=== PATIENT | male | born 2000 | race Caucasian/White ===

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

== ENCOUNTER 2019-02-24 16:05 | Emergency (ER) | payer BC ==
--- OUTSIDE RECORDS SUMMARY | 2019-02-24 16:19 | XMS REPORT | Continuity of Care Document ---
:2000 External Reference #:[id number] Author Name SeveroChay, Address [address] [place] [id number] Problems Active Problems Provider Date No current problems or disability Onset: 02/05/2011 Social History Type Date Description Comments Sex Unknown Tobacco Use Start: Unknown Never Smoked Cigarettes ETOH Use Denies alcohol use Recreational Drug Use Denies Drug Use Tobacco Use Start: Unknown Patient has never smoked Smoking Status Reviewed: 08/09/18 Patient has never smoked Allergies, Adverse Reactions, Alerts Active Allergies Reaction Severity Comments Date Amoxicillin 04/01/2010 Medications Active Medications SIG Qnty Indications Ordering Provider Date Sulfamethoxazole-Trimet take 1 tablet 60tabs Chay Elkins, 09/13/2018 hoprim by mouth twice DO 400-80mg Tablets a day Allergy 24-HR Jonathan Atkins, 02/12/2015 180mg Tablets DO Multivitamins 1 by mouth OTC Jonathan Atkins, 02/12/2015 Capsules every day DO Immunizations CPT Code Status Date Vaccine Reaction Lot # [id number] Given 02/09/2019 Meningococcal [id number] B(Bexsero)protn otrMembran Vesicle Vccn 2 dose sche [id number] Given 04/18/2018 Flu Vaccine NOS [id number] Given 02/07/2018 Meningococcal [id number] B(Bexsero)protn otrMembran Vesicle Vccn 2 [place] 12[address] Given 03/26/2017 Influenza Vac, Pt tolerated well [id number] Quadrivalent, Split, 0.5mL Dosage, [place] Use 85449 Given 08/06/2016 Gardasil-9 (HPV) Nonavalent Im inj completed, Pt [id number] 2-3 Dose Schedule Im tolerated well 18978 Given 04/09/2016 Influenza Virus Im inj completed, Pt [id number] Vaccine,Quadrivalent,Split, tolerated well Preserv Free, 0.5mL,[place] [address] Given 04/01/2016 Gardasil-9 (HPV) Nonavalent Pt tolerated well [id number] 2-3 [place] [address] Given 01/27/2016 Menactra/Menveo Im inj completed, Pt [id number] Meningococcal Vaccine tolerated well 80771 Given 01/27/2016 Gardasil-9 (HPV) Nonavalent Im inj completed, Pt [id number] 2-3 Dose Schedule Im tolerated well 44930 Given 04/18/2015 Influenza Virus [id number] Vaccine,Quadrivalent,Split, Preserv Free, 0.5mL,Im [address] Given 03/23/2014 Influenza Virus Vaccine,Quadrivalent,Split, Preserv Free, 0.5mL,Im 95862 Given 03/09/2013 Afluria Or Fluvirin Flu Vac Intramuscular 97474 Given 03/30/2012 Afluria Or Fluvirin Flu Vac Intramuscular 29585 Given 02/08/2012 Menactra/Menveo Meningococcal Vaccine 11778 Given 03/27/2011 Afluria Or Fluvirin Flu Vac Intramuscular 41373 Given 12/24/2010 Tdap (Adacel) Ages 7 And Above Only 22827 Given 05/10/2007 Hepatitis A, Ped/Adolescent 2 Dose Schedule 87447 Given 05/10/2007 Varicella (Chicken Pox) Immunization 34809 Given 11/04/2006 Hepatitis A, Ped/Adolescent 2 Dose Schedule 95843 Given 11/20/2004 IPV / Poliomyelitis Immunization 29439 Given 11/20/2004 MMR Virus Immunization 60697 Given 12/28/2000 Hib/Hep B Vaccine Combination 62796 Given 10/05/2000 Varicella (Chicken Pox) Immunization 51386 Given 10/05/2000 IPV / Poliomyelitis Immunization 62636 Given 10/05/2000 Pneumococcal (Prevnar 7)Child Under Five 46037 Given 06/28/2000 Hib/Hep B Vaccine Combination 86458 Given 06/28/2000 MMR Virus Immunization 62664 Given 06/28/2000 Pneumococcal (Prevnar 7)Child Under Five 46665 Given 1999 Hib/Hep B Vaccine Combination 44663 Given 1999 IPV / Poliomyelitis Immunization 78071 Given 1999 Hib/Hep B Vaccine Combination 80715 Given 1999 IPV / Poliomyelitis Immunization 17336 Refused 02/12/2015 Gardasil-9 (HPV) Nonavalent 2-3 Dose Schedule Im Vital Signs Date Vital Result Comment 02/09/2019 3:33pm Weight 204.00 lb Weight Percentile 94th Heart Rate 50 /min BP Systolic 124 mmHg BP Diastolic 84 mmHg Respiratory Rate 17 /min Height 72 inches 6'0" (01/2019) Height Percentile 81 % BMI (Body Mass Index) 27.7 kg/m2 Body Mass Index Percentile 89 % 08/09/2018 4:02pm Body Temperature 99.2 F tympanic Weight 198.56 lb Weight Percentile 92nd Heart Rate 84 /min BP Systolic 130 mmHg BP Diastolic 76 mmHg Respiratory Rate 16 /min Height 72 inches 6'0" 01/2018 Height Percentile 81 % O2 % BldC Oximetry 98 % Room Air BMI (Body Mass Index) 26.9 kg/m2 Body Mass Index Percentile 87 % Results Test Date Facility Test Result H/L Range Note Laboratory test 02/09/2019 [facility] Urine Culture <pending> finding Laboratory test 02/09/2019 [facility] Cytology Fluid <pending> finding Specimen -RL Procedures Description No Information Available Medical Devices Description No Information Available Encounters Description No Information Available Assessments Date Code Description Provider 02/09/2019 Z00.00 Encounter for general adult medical examination Chay Elkins DO without abnormal findings 02/09/2019 Z23 Encounter for immunization Chay Elkins DO 02/09/2019 L70.0 Acne vulgaris Chay Elkins DO 02/09/2019 R31.9 Hematuria, unspecified Chay Elkins DO Plan of Treatment Future Appointment(s):02/23/2019 3:30 pm - Schedule, Laboratory at [facility]2019 3:30 pm - Chay Elkins DO at [facility]06/05/2019 11:00 am - Schedule, Nurses at [facility]02/09/2019 - Chay Elkins DOZ00.00 Encounter for general adult medical examination without abnormal findingsFollow up:Schedule for blood work in the next couple of weeks and follow up with me in 1 year for Annual Physical.Z23 Encounter for immunizationComments:Administered Men B vaccination after reviewing the side-effects on 02/09/2019. Handouts provided. The patient tolerated well.L70.0 Acne vulgarisNew Labs:CBC with Auto Diff-fcmg, Scheduled: 02/23/19Comprehensive Met Panel-[facility], Scheduled: 02/23/19Comments:Condition reviewed with the patient:Continue with Bactrim. We will obtain blood work since he is on Bactrim. We will continue to monitor.R31.9 Hematuria, unspecifiedComments:Condition reviewed with the patient. Urine showed microscopic blood.Will send for a urine culture and cytology.We will continue to monitor. Functional Status Description No Information Available Mental Status Description No Information Available Referrals Description No Information Available
[2019-02-24 16:23] VITALS: BP 143/59
--- NOTE | 2019-02-24 16:35 | UC ---
HPI Wound/Suture Re-check - HPI Summary HPI Summary: 18 y/o male presents to the urgent care w/ father requesting suture removal from his RT knee. Pt reports wound healing well and he can move his knee w/o any problem. Pt reports he had laceration repair here at the clinic on 2018 and 9 sutures were placed. Pt denies fever, SOB, chest pain,abdominal pain , N/V/d. - History Of Current Complaint Chief Complaint: UCLaceration Stated Complaint: SUTURE REMOVAL Time Seen by Provider: 02/24/19 16:34 Hx Obtained From: Patient Onset/Duration: Sudden Onset, Lasting Weeks - 10 days ago, Resolved Severity: Mild Pain Intensity: 0 Pain Scale Used: 0-10 Numeric Surgery Date: 02/14/19 - RT knee laceration - Allergies/Home Medications Allergies/Adverse Reactions: Allergies Allergy/AdvReac Type Severity Reaction Status Date / Time amoxicillin Allergy Intermediate Facial Verified 02/24/19 16:21 Redness/Flushing PMH/Surg Hx/FS Hx/Imm Hx Previously Healthy: Yes - Pt denies PMHX - Surgical History Surgical History: Yes Surgery Procedure, Year, and Place: T&A, 2010, [facility] [place]. Ear Tubes x 2 - Family History Known Family History: Positive: Hypertension - Social History Occupation: Student Lives: With Family Alcohol Use: None Substance Use Type: None Smoking Status (MU): Never Smoked Tobacco - Immunization History Most Recent Influenza Vaccination: yes 2016 Most Recent Tetanus Shot: 2010 Vaccination Up to Date: Yes Review of Systems All Other Systems Reviewed And Are Negative: Yes Constitutional: Positive: Negative Skin: Positive: Other - suture removal from RT knee laceration repair, healing well Eyes: Positive: Negative ENT: Positive: Negative Respiratory: Positive: Negative Cardiovascular: Positive: Negative Gastrointestinal: Positive: Negative Genitourinary: Positive: Negative Motor: Positive: Negative Neurovascular: Positive: Negative Musculoskeletal: Positive: Negative Neurological: Positive: Negative Psychological: Positive: Negative Is Patient Immunocompromised?: No Physical Exam Triage Information Reviewed: Yes Appearance: Well-Appearing, No Pain Distress, Well-Nourished Vital Signs: Initial Vital Signs Temp 98.5 F 02/24/19 16:21 Pulse 77 02/24/19 16:21 Resp 16 02/24/19 16:21 BP 143/59 02/24/19 16:21 Pulse Ox 100 02/24/19 16:21 Vital Signs Reviewed: Yes Eye Exam: Normal ENT Exam: Normal Dental Exam: Normal Neck exam: Normal Respiratory Exam: Normal Cardiovascular Exam: Normal Abdominal Exam: Normal Bowel Sounds: Positive: Present Musculoskeletal Exam: Normal Neurological Exam: Normal Psychological Exam: Normal Skin: Positive: Significant Lesion(s) - RT knee lateral side w/ wound healing well with crusting and moderate granulation over, non tender to palpation, [address] 9 sutures removed w/o any difficulty. RT knee FROM. Course/Dx - Course Course Of Treatment: 18 y/o male presents to the urgent care w/ father requesting suture removal from his RT knee. Pt reports wound healing well and he can move his knee w/o any problem. Pt reports he had laceration repair here at the clinic on 2018 and 9 sutures were placed. Pt denies fever, SOB, chest pain,abdominal pain , N/V/d. Hx obtained. Wound healing well with crusting and moderate granulation over, non tender to palpation, [address] 9 sutures removed w/o any difficulty. Pt tolerated well procedure. wound cleaned with sterile water and bacitracin applied over and cover with sterile gauze. Pt advised if redness, pain or fever develops to return to the urgent care or f/u with PCP for further treatment. Pt's BP elevated today, advised to decrease salt in diet and monitor BP, and f/u with PCP. Father and Pt understood and agreed with plan of care - Differential Dx - Laceration/Wound Differential Diagnoses: Cellulitis, Healing Wound, Suture Removal - Diagnosis Provider Diagnosis: Visit for suture removal Discharge ED - Sign-Out/Discharge Documenting (check all that apply): Patient Departure - D/C home All imaging exams completed and their final reports reviewed: No Studies - Discharge Plan Condition: Stable Disposition: HOME Prescriptions: Bacitracin OINTMENT* 1 applic TOPICAL BID #1 tube Patient Education Materials: Acute Wound Care (ED) Referrals: Chay Elkins DO [Primary Care Provider] - 3 Days Additional Instructions: 1-Please apply topical antibiotic over the wound. Keep wound clean and dry 2-Take Ibuprofen or Tylenol PO q6-8hrs prn for pain or swelling. 3- If you develop infection please f/u w/ your [employer] for further management. 4-Your BP is elevated today. please decrease salt in your diet, monitor BP and if it continues to be elevated please f/u with your PCP for further management. - Billing Disposition and Condition Condition: STABLE Disposition: Home
== END 2019-02-24 16:55 | disposition home or self-care (01) ==
LOC: UCCORT 16:05
DX: Z48.02 Encounter for removal of sutures (principal); R03.0 Elevated blood-pressure reading, without diagnosis of hypertension

== ENCOUNTER 2019-06-02 17:53 | Emergency (ER) | payer BC ==
[2019-06-02 18:00] VITALS: BP 134/72
--- NOTE | 2019-06-02 18:05 | UC ---
Throat Pain/Nasal Rachid HPI - HPI Summary HPI Summary: Patient presents to urgent care with his father. Patient's a 18-year-old male who states the last 8-9 days history of progressive sinus pressure facial pain. Patient states is worse when he leans forward or when he lies on his back. Patient states showers seemed to give him some temporary relief. Patient's been taking Mucinex DM without improvement. No nausea or vomiting. No fevers, chills, rash. Patient with fatigue. Patient bedroom has forced hot air he is not using a humidifier. Patient does have a history of sinus infections. Mild sore throat. No cough chest pain shortness of breath. Patient's with a history of sinus infections and states this feels similar. Patient's medications as entered in the EMR by waiter/waitress second class were reviewed. - History of Current Complaint Chief Complaint: UCRespiratory Stated Complaint: SINUS Time Seen by Provider: 06/02/19 17:59 Hx Obtained From: Patient Pain Intensity: 5 - Allergies/Home Medications Allergies/Adverse Reactions: Allergies Allergy/AdvReac Type Severity Reaction Status Date / Time amoxicillin Allergy Intermediate Facial Verified 06/02/19 17:58 Redness/Flushing PMH/Surg Hx/FS Hx/Imm Hx Previously Healthy: Yes - Surgical History Surgical History: Yes Surgery Procedure, Year, and Place[place] [facility] [place] T[place] x 2 - Family History Known Family History: Positive: Hypertension, Non-Contributory - Social History Occupation: Student Lives: With Family Alcohol Use: Occasionally Substance Use Type: None Smoking Status (MU): Never Smoked Tobacco - Immunization History Most Recent Influenza Vaccination: yes 2016 Most Recent Tetanus Shot: 2010 Vaccination Up to Date: Yes Review of Systems All Other Systems Reviewed And Are Negative: Yes Constitutional: Positive: Fatigue ENT: Positive: Sore Throat, Nasal Discharge, Sinus Congestion, Sinus Pain/ Tenderness Respiratory: Positive: Negative Cardiovascular: Positive: Negative Gastrointestinal: Positive: Negative Physical Exam - Summary Physical Exam Summary: Vital Signs Reviewed: Yes A+Ox3, no distress, congested Eyes: Conjunctiva Clear, ROSELIA. EOM intact and full ENT: Hearing grossly normal TM x 2 visualized, fluid left TM, turbiantes inflammed and boggy + thick secretions, + PND, + TTP bilateral max sinuses, mmoist, uvula midline, no exudate, no erythema Neck: Positive: Supple Respiratory: Positive: No respiratory distress, No accessory muscle use + CTA throughout no w/r Cardiovascular: RRR nl s1, s2 no m/r CBT <2 sec abd soft + BS nt/nd no guarding, no distension Musculoskeletal Exam: LEWIS x 4 without difficulty Strength Intact, ROM Intact Neurological: Positive: Alert, + sensation throughout Psychological: Positive: Normal Response To examiner Skin: Positive: no rash, no ecchymosis Triage Information Reviewed: Yes Vital Signs: Initial Vital Signs Temp 97.3 F 06/02/19 17:58 Pulse 65 06/02/19 17:58 Resp 16 06/02/19 17:58 BP 134/72 06/02/19 17:58 Pulse Ox 100 06/02/19 17:58 Throat Pain/Nasal Course/Dx - Course Course Of Treatment: Patient presents to urgent care stating a 2 and a progressive facial congestion and nasal congestion with green secretions postnasal drip. No fevers or chills. No nausea vomiting. Patient reports fatigue. Patient has been taking Mucinex with no improvement. Patient with a history sinus infections and feels the same. On exam vital signs are stable. Patient congested and exam consistent with sinusitis Sinus pain. I contacted [facility] and patient has taken Ceftin urine several times. Patient is on minocycline for acne. Discussed with patient need to take probiotics only eat yogurt to help with diarrhea. Flonase. Secretion precaution. humidify air. Return precautions. Pt comfortable and in agreement with plan - Differential Dx/Diagnosis Provider Diagnosis: Rhinosinusitis Discharge ED - Sign-Out/Discharge Documenting (check all that apply): Patient Departure All imaging exams completed and their final reports reviewed: No Studies - Discharge Plan Condition: Stable Disposition: HOME Prescriptions: Cefdinir [Cefdinir 300 MG CAP] 300 mg PO BID #20 capsule Fluticasone NASAL SPRAY 50MCG* [Flonase NASAL SPRAY 50MCG*] 2 spray BOTH NARES DAILY #1 btl Patient Education Materials: Rhinosinusitis (ED) Referrals: Chay Elkins DO [Primary Care Provider] - Additional Instructions: - Stay well hydrated. Drink plenty of non-alcoholic, non-caffinated beverages. - Alternate ibuprofen (Advil, Motrin) 600mg and Tylenol every 3 hours for pain or fever. Take with food. Do NOT take for more than 4-5 days. - These infections are spread by secretions - do NOT share eating or drinking utensils - clean items you share with other people such as cell phones, computer mouse, TV remote, computer tablets,etc. Once you have been antibiotics for 2 days, change your toothbrush and your pillowcase. - get plenty of restful sleep - humidify the air in the room where you sleep - boil water, run a hot steam shower, vaporizer, cups of water by heat register - okay to take over the counter decongestant and cough medication - use nasal spray as prescribed - Take antibiotics as prescribed until gine - contact your doctor or return with questions or concerns - Billing Disposition and Condition Condition: STABLE Disposition: Home
== END 2019-06-02 18:22 | disposition home or self-care (01) ==
LOC: UCCORT 17:53
DX: J32.9 Chronic sinusitis, unspecified (principal); R53.83 Other fatigue; J02.9 Acute pharyngitis, unspecified; Z88.0 Allergy status to penicillin
CPT/HCPCS: 99212; G0463

== ENCOUNTER 2019-06-13 12:40 | Emergency (ER) | payer BC ==
[2019-06-13 13:09] VITALS: BP 122/48
--- NOTE | 2019-06-13 14:12 | UC ---
Throat Pain/Nasal Rachid HPI - HPI Summary HPI Summary: sinus pain and pressure x 3 weeks pain is 6 out 10 , constant, worse with head movement, better with Tylenol , + nasal congestion , pnd, cough no fever, no chills, - History of Current Complaint Chief Complaint: UCRespiratory Stated Complaint: RECHECK SINUS CONGESTION Time Seen by Provider: 06/13/19 13:08 Hx Obtained From: Patient Onset/Duration: Gradual Onset, Lasting Weeks - 3, Still Present Severity: Moderate Pain Intensity: 6 Pain Scale Used: 0-10 Numeric Cough: Nonproductive Associated Signs & Symptoms: Positive: Sinus Discomfort, Nasal Discharge. Negative: Wheezing, Hoarseness, Fever, Vomiting, Rash - Allergies/Home Medications Allergies/Adverse Reactions: Allergies Allergy/AdvReac Type Severity Reaction Status Date / Time amoxicillin Allergy Intermediate Facial Verified 06/13/19 13:02 Redness/Flushing Home Medications: Home Medications Guaifenesin/Pseudoephedrne HCl [Mucinex D ER 1,200-120 mg Tab] 1 tab PO DAILY [History Confirmed 06/13/19] PMH/Surg Hx/FS Hx/Imm Hx Previously Healthy: Yes - Surgical History Surgical History: Yes Surgery Procedure, Year, and Place: T&A, 2011, [facility] [place]. Ear Tubes x 2 - Family History Known Family History: Positive: Hypertension, Non-Contributory - Social History Alcohol Use: Occasionally Substance Use Type: None Smoking Status (MU): Never Smoked Tobacco - Immunization History Most Recent Influenza Vaccination: yes 2016 Most Recent Tetanus Shot: 2010 Vaccination Up to Date: Yes Review of Systems All Other Systems Reviewed And Are Negative: Yes Constitutional: Positive: Negative Skin: Positive: Negative Eyes: Positive: Negative ENT: Positive: Sore Throat, Ear Ache, Nasal Discharge, Sinus Congestion, Sinus Pain/Tenderness Respiratory: Positive: Cough Is Patient Immunocompromised?: No Physical Exam Triage Information Reviewed: Yes Appearance: Well-Appearing, No Pain Distress, Well-Nourished Vital Signs: Initial Vital Signs Temp 98.6 F 06/13/19 13:04 Pulse 58 06/13/19 13:04 Resp 20 06/13/19 13:04 BP 122/48 06/13/19 13:04 Pulse Ox 99 06/13/19 13:04 Vital Signs Reviewed: Yes Eye Exam: Normal Eyes: Positive: Conjunctiva Clear ENT: Positive: Normal ENT inspection, Hearing grossly normal, Pharynx normal, Nasal congestion, TMs normal, Sinus tenderness. Negative: TM bulging, TM dull, TM red, Tonsillar swelling, Tonsillar exudate Neck exam: Normal Neck: Positive: Supple, Nontender, No Lymphadenopathy Respiratory: Positive: Chest non-tender, Lungs clear, Normal breath sounds Cardiovascular: Positive: RRR, No Murmur, Pulses Normal Throat Pain/Nasal Course/Dx - Differential Dx/Diagnosis Provider Diagnosis: Sinusitis Discharge ED - Sign-Out/Discharge Documenting (check all that apply): Patient Departure All imaging exams completed and their final reports reviewed: No Studies - Discharge Plan Condition: Stable Disposition: HOME Prescriptions: DOXYcycline CAP(*) [DOXYcycline 100MG CAP(*)] 100 mg PO BID #20 cap Fluticasone NASAL SPRAY 50MCG* [Flonase NASAL SPRAY 50MCG*] 2 spray BOTH NARES DAILY #1 btl predniSONE [Prednisone 20 MG TAB] 20 mg PO DAILY #7 tablet Patient Education Materials: Sinusitis (ED) Referrals: Chay Elkins DO [Primary Care Provider] - 7 Days - Billing Disposition and Condition Condition: STABLE Disposition: Home
== END 2019-06-13 13:26 | disposition home or self-care (01) ==
LOC: UCCORT 12:40
DX: J32.9 Chronic sinusitis, unspecified (principal); J02.9 Acute pharyngitis, unspecified; R05 Cough; H92.09 Otalgia, unspecified ear; Z88.0 Allergy status to penicillin
CPT/HCPCS: 99212; G0463